=== PATIENT | male | born 2000 | race Caucasian/White ===

== ENCOUNTER 2025-03-26 04:02 | Emergency (ER) | payer BC ==
[~2025-03-26] VITALS: Ht 167.6 cm; Wt 71.0 kg
[2025-03-26 04:09] VITALS: O2SAT 100
[2025-03-26] MEDS ORDERED: HYDR28.485 RC (04:52)
[2025-03-26] MEDS ORDERED: CLOT45CR62 RC (04:52)
[2025-03-26 04:59] VITALS: BP 112/79; PULSE 83; RESP 16; TEMP 36.6; O2SAT 100
== END 2025-03-26 05:23 | disposition home or self-care (01) ==
LOC: ER 04:02
DX: B35.6 Tinea cruris (principal); K62.89 Other specified diseases of anus and rectum
CPT/HCPCS: 99282

== ENCOUNTER 2025-03-28 17:42 | Emergency (ER) | payer BC ==
[~2025-03-28] VITALS: Ht 167.6 cm; Wt 70.0 kg
[~2025-03-28 17:42] MED LIST: CLOT45CR62 RC; HYDR28.485 RC
[2025-03-28 17:51] VITALS: O2SAT 98
[2025-03-28] MEDS ORDERED: VALA100044 MT (18:21)
[2025-03-28] MEDS ORDERED: DOXY-461 MT (18:21)
[2025-03-28] MEDS: CEFTRIAXONE SODIUM 500MG VIAL IM ONE (18:33)
[2025-03-28 18:50] VITALS: BP 122/68; PULSE 92; RESP 16; TEMP 36.8; O2SAT 99
== END 2025-03-28 18:51 | disposition home or self-care (01) ==
LOC: ER 17:42
DX: K62.89 Other specified diseases of anus and rectum (principal); R21 Rash and other nonspecific skin eruption; Z20.2 Contact with and (suspected) exposure to infections with a predominantly sexual mode of transmission; Z79.624 Long term (current) use of inhibitors of nucleotide synthesis
CPT/HCPCS: 96372; 99283; J0696; Z7610 ×2